=== PATIENT | female | born 1990 | race Caucasian/White ===

== ENCOUNTER 2017-03-12 09:56 | Outpatient (RCR) | payer OTHER | END 2017-04-09 13:36 | disposition home or self-care (01) | LOC: WSOH 09:56 | DX: S83.511D Sprain of anterior cruciate ligament of right knee, subsequent encounter (principal); M66.0 Rupture of popliteal cyst; X50.0XXD Overexertion from strenuous movement or load, subsequent encounter; Y99.0 Civilian activity done for income or pay ==

== ENCOUNTER → 2018-05-21 | Outpatient (CLI) | payer OTHER ==
[~2018-05-21] MED LIST: ASPIRIN 81M81 MG/TA2 PO; PRENATAL MVI
--- NOTE | 2018-05-21 23:15 | NUR ---
Ambulatory to unit for labor assessment accompanied by spouse. Pt reports contractions 10 min apart since 2100, "but I'm not feeling any right now" Oriented to room, monitor, plan of care, questions invited and answered.
[2018-05-21 23:33] VITALS: BP 129/76; PULSE 75; TEMP 98.9
[2018-05-22 00:35] VITALS: BP 129/76; PULSE 75; TEMP 98.9
--- NOTE | 2018-05-22 00:35 | NUR ---
Repeat SVE with no changes noted. Pt states "I didn't think it was going to be any different."
--- NOTE | 2018-05-22 00:45 | NUR ---
Discharge instructions reviewed with pt, questions invited and answered. Ambulatory off unit.
== END ==
LOC: LDRO 23:20
DX: O62.9 Abnormality of forces of labor, unspecified (principal); Z3A.36 36 weeks gestation of pregnancy